=== PATIENT | male | born 1995 | race African-American/Black ===

== ENCOUNTER 2021-04-28 11:40 | Emergency (ER) | payer MEDICAID ==
[~2021-04-28] VITALS: Ht 167.6 cm; Wt 67.0 kg
[2021-04-28] MEDS ORDERED: KETOROLAC 30MG/ML VIAL IV STA (12:03)
[2021-04-28] MEDS ORDERED: SODIUM CHLORIDE 0.9% 1,000 ML IV ONE (12:15)
[2021-04-28 13:10] LABS: BASOPHILS % 0.4 % (0.0-2.0); EOSINOPHILS % 0.2 % (0.0-5.0); HEMATOCRIT. 50.5 % (42.0-52.0); HEMOGLOBIN. 16.8 g/dL (14.0-18.0); LYMPHOCYTES % 10.2 % (20.0-50.0); MEAN CORPUSCULAR VOLUME 84.1 fL (80.0-94.0); MEAN PLATELET VOLUME 8.6 fl (7.4-10.4); MONOCYTES % 5.7 % (2.0-8.0); NEUTROPHILS % 83.5 % (40.0-76.0); PLATELET 247 x1000/uL (130-400); RED BLOOD CELL COUNT 6.01 mill/uL (4.7-6.1); RED CELL DISTRIBUTION WIDTH 13.3 % (11.6-14.6)
[2021-04-28 13:18] LABS: CHLORIDE 102 mEq/L (98-107)
[2021-04-28 13:23] LABS: ETHANOL BLOOD < 10 mg/dL
[2021-04-28 15:00] LABS: CLARITY URINE CLEAR (CLEAR); COLOR URINE DARK YELLOW (YELLOW); KETONES URINE 3+ (NEGATIVE); LEUKOCYTE ESTERASE URINE TRACE (NEGATIVE); NITRITE URINE NEGATIVE (NEGATIVE); OCCULT BLOOD URINE NEGATIVE (NEGATIVE); PH URINE 8.5 (4.5-8.0); PROTEIN URINE 2+ (NEGATIVE); SPECIFIC GRAVITY URINE 1.028 (1.005-1.030)
[2021-04-28 15:14] LABS: *AMPHETAMINES SCREEN URINE NEGATIVE (NEGATIVE); *BARBITURATES SCREEN URINE NEGATIVE (NEGATIVE); *BENZODIAZEPINES SCREEN URINE NEGATIVE (NEGATIVE); *COCAINE SCREEN URINE NEGATIVE (NEGATIVE); CANNABINOID URINE SCREEN PRESUMTIVE POSITIVE (NEGATIVE); PHENCYCLIDINE URINE SCREEN NEGATIVE (NEGATIVE)
[2021-04-28] MEDS ORDERED: IBUP-2028 MT (15:14)
[2021-04-28 15:15] LABS: METHADONE URINE SCREEN NEGATIVE (NEGATIVE); OPIATES URINE SCREEN NEGATIVE (NEGATIVE)
[2021-04-28 16:52] VITALS: BP 126/72
== END 2021-04-28 16:54 | disposition home or self-care (01) ==
LOC: ER 11:45
DX: R10.31 Right lower quadrant pain (principal); K56.609 Unspecified intestinal obstruction, unspecified as to partial versus complete obstruction; J45.909 Unspecified asthma, uncomplicated; Z79.899 Other long term (current) drug therapy
CPT/HCPCS: 36415; 74176; 80053; 80305; 80307; 80320; 80329; 81003; 83690; 85025; 93005; 96361; 96374; 99285; J1885; J7030; Z7610; G0480

== ENCOUNTER 2023-10-06 19:57 | Emergency (ER) | payer MEDICAID ==
[~2023-10-06] VITALS: Ht 172.7 cm; Wt 68.0 kg
[~2023-10-06 19:57] MED LIST: IBUP-2028 MT
[2023-10-06 20:06] VITALS: O2SAT 99
[2023-10-06 20:40] VITALS: TEMP 98.5
[2023-10-06] MEDS: BUPRENORPHINE 8MG SL TABLET SL ONE ×2 (20:45→22:42)
[2023-10-06] MEDS ORDERED: BUPRENORPHINE 8MG SL TABLET SL ONE (22:00)
[2023-10-07] MEDS ORDERED: BUPR1TAB33 SL (00:55)
[2023-10-07] MEDS: BUPRENORPHINE 8MG SL TABLET SL NR (01:00)
[2023-10-07 01:33] VITALS: BP 134/76; PULSE 76; RESP 20
== END 2023-10-07 01:30 | disposition home or self-care (01) ==
LOC: ER 19:57
DX: F11.23 Opioid dependence with withdrawal (principal); J45.909 Unspecified asthma, uncomplicated
CPT/HCPCS: 99283; Z7610 ×2

== ENCOUNTER 2024-07-28 12:50 | Inpatient (IN) | payer MEDICAID ==
[~2024-07-28] VITALS: Ht 330.2 cm; Wt 70.3 kg
[~2024-07-28 12:50] MED LIST changes: +BUPR1TAB33 SL
[2024-07-28 12:52] VITALS: O2SAT 100
[2024-07-28] MEDS ORDERED: NALO4SPR BOTHNSTRLS (16:31)
[2024-07-28 16:38] LABS: BASOPHILS % 0.1 % (0.0-2.0); HEMATOCRIT. 42.5 % (42.0-52.0); HEMOGLOBIN. 14.2 g/dL (14.0-18.0); LYMPHOCYTES % 32.1 % (20.0-50.0); MEAN CORPUSCULAR HEMOGLOBIN 28.8 pg (28.0-32.0); MEAN CORPUSCULAR HGB CONC 33.4 g/dL (31.0-37.0); MEAN PLATELET VOLUME 7.9 fl (7.4-10.4); MONOCYTES % 7.5 % (2.0-8.0); NEUTROPHILS % 60.3 % (40.0-76.0); PLATELET 215 x1000/uL (130-400); RED BLOOD CELL COUNT 4.94 mill/uL (4.7-6.1); RED CELL DISTRIBUTION WIDTH 12.8 % (11.6-14.6); WHITE BLOOD COUNT 6.6 x1000/uL (4.5-11.0)
[2024-07-28 16:43] LABS: CHLORIDE 108 mEq/L (98-107); POTASSIUM 4.2 mEq/L (3.5-5.1); SODIUM 144 mEq/L (136-145)
[2024-07-28 16:44] LABS: CARBON DIOXIDE 26 mEq/L (21-32)
[2024-07-28 16:45] LABS: CALCIUM 10.5 mg/dL (8.7-10.4)
[2024-07-28 16:49] LABS: CREATININE 0.9 mg/dL (0.6-1.3); GLUCOSE 127 mg/dL (70-105); UREA NITROGEN BLOOD 20 mg/dL (9-23)
[2024-07-28 16:51] LABS: ACETAMINOPHEN < 2 ug/mL (10-30)
[2024-07-28 16:57] LABS: ETHANOL BLOOD < 10 mg/dL (<10)
[2024-07-28 18:06] LABS: *AMPHETAMINES SCREEN URINE NEGATIVE (NEGATIVE); *BENZODIAZEPINES SCREEN URINE PRESUMPTIVE POSITIVE (NEGATIVE)
[2024-07-28 18:07] LABS: *BARBITURATES SCREEN URINE NEGATIVE (NEGATIVE); *COCAINE SCREEN URINE NEGATIVE (NEGATIVE); CANNABINOID URINE SCREEN PRESUMPTIVE POSITIVE (NEGATIVE); ECSTASY MDMA SCREEN URINE NEGATIVE (NEGATIVE); METHADONE URINE SCREEN NEGATIVE (NEGATIVE); OPIATES URINE SCREEN NEGATIVE (NEGATIVE); PHENCYCLIDINE URINE SCREEN NEGATIVE (NEGATIVE)
[2024-07-29] VITALS (7 sets, daily range): BP systolic 96–124; BP diastolic 50–77; PULSE 56–62; RESP 17–18; TEMP 35.9–36.9; O2SAT 18–100
[2024-07-29] MEDS ORDERED: ACETAMINOPHEN 325MG TABLET PO PRN ×2 (01:30→02:00)
[2024-07-29] MEDS: ENOXAPARIN 40MG/0.4ML SYR SUBCUT SCH (08:29)
[2024-07-29] MEDS ORDERED: LORAZEPAM 2MG/ML INJ IV PRN (10:00)
[2024-07-29] MEDS ORDERED: CLONIDINE 0.1MG TABLET PO PRN (10:00)
[2024-07-29] MEDS ORDERED: ONDANSETRON HCL 4MG/2ML INJ IV PRN (10:00)
[2024-07-29 11:08] LABS: CARBON DIOXIDE 25 mEq/L (21-32); CHLORIDE 111 mEq/L (98-107)
[2024-07-29 11:09] LABS: CALCIUM 10.1 mg/dL (8.7-10.4); POTASSIUM 3.2 mEq/L (3.5-5.1); SODIUM 146 mEq/L (136-145)
[2024-07-29 11:11] LABS: HEMATOCRIT 39.3 % (42.0-52.0); HEMOGLOBIN 13.1 g/dL (14.0-18.0); MEAN CORPUSCULAR HEMOGLOBIN 28.6 pg (28.0-32.0); MEAN CORPUSCULAR HGB CONC 33.3 g/dL (31.0-37.0); MEAN CORPUSCULAR VOLUME 86.1 fL (80.0-94.0); PLATELET 188 x1000/uL (130-400); RED BLOOD CELL COUNT 4.57 mill/uL (4.7-6.1); RED CELL DISTRIBUTION WIDTH 12.6 % (11.6-14.6); WHITE BLOOD COUNT 6.4 x1000/uL (4.5-11.0)
[2024-07-29 11:13] LABS: CREATININE 0.9 mg/dL (0.6-1.3)
[2024-07-29 11:14] LABS: GLUCOSE 139 mg/dL (70-105); UREA NITROGEN BLOOD 25 mg/dL (9-23)
[2024-07-29 11:15] LABS: ALANINE AMINOTRANSFERASE 12 IU/L (10-49); ALBUMIN 4.4 g/dL (3.2-4.8); ASPARTATE AMINOTRANSFERASE 15 IU/L (<34)
[2024-07-29 11:16] LABS: BILIRUBIN TOTAL 0.7 mg/dL (0.1-1.0); PROTEIN TOTAL 7.4 g/dL (6.0-8.3)
[2024-07-29] MEDS: POTASSIUM CHLORIDE 20MEQ TABLET SR PO NR (23:31)
[2024-07-30] VITALS: BP 101/43; PULSE 56; RESP 18; TEMP 36.4; O2SAT 98
[2024-07-30] MEDS: KCL 20MEQ/100ML PREMIX 100 ML IV SCH (01:18)
[2024-07-30 04:00] VITALS: BP 106/49; PULSE 51; RESP 18; TEMP 36.7; O2SAT 99
[2024-07-30 08:00] VITALS: BP 127/77; PULSE 54; RESP 20; TEMP 36.3; O2SAT 100
[2024-07-30 12:00] VITALS: BP 122/69; PULSE 60; RESP 20; TEMP 36.6; O2SAT 100
[2024-07-30 16:00] VITALS: BP 125/58; PULSE 64; RESP 20; TEMP 36.3; O2SAT 97
[2024-07-30 17:23] LABS: HEMATOCRIT. 41.2 % (42.0-52.0); HEMOGLOBIN. 13.6 g/dL (14.0-18.0); MEAN CORPUSCULAR HEMOGLOBIN 28.8 pg (28.0-32.0); MEAN CORPUSCULAR VOLUME 87.2 fL (80.0-94.0); MEAN PLATELET VOLUME 8.2 fl (7.4-10.4); PLATELET 185 x1000/uL (130-400); RED BLOOD CELL COUNT 4.72 mill/uL (4.7-6.1); RED CELL DISTRIBUTION WIDTH 12.9 % (11.6-14.6); WHITE BLOOD COUNT 6.2 x1000/uL (4.5-11.0)
[2024-07-30 17:28] LABS: DIFFERENTIAL COMMENT 1
[2024-07-30 17:32] LABS: CHLORIDE 114 mEq/L (98-107); POTASSIUM 3.8 mEq/L (3.5-5.1); SODIUM 149 mEq/L (136-145)
[2024-07-30 17:33] LABS: CARBON DIOXIDE 23 mEq/L (21-32)
[2024-07-30 17:34] LABS: CALCIUM 10.6 mg/dL (8.7-10.4)
[2024-07-30 17:34] LABS: CLARITY URINE CLOUDY (CLEAR); COLOR URINE DARK YELLOW (YELLOW); GLUCOSE URINE NEGATIVE (NEGATIVE); KETONES URINE 3+ (NEGATIVE); LEUKOCYTE ESTERASE URINE NEGATIVE (NEGATIVE); NITRITE URINE NEGATIVE (NEGATIVE); OCCULT BLOOD URINE NEGATIVE (NEGATIVE); PROTEIN URINE 1+ (NEGATIVE)
[2024-07-30 17:38] LABS: CREATININE 0.9 mg/dL (0.6-1.3); GLUCOSE 105 mg/dL (70-105)
[2024-07-30 17:39] LABS: UREA NITROGEN BLOOD 29 mg/dL (9-23)
[2024-07-30 17:40] LABS: ALANINE AMINOTRANSFERASE 12 IU/L (10-49); ALBUMIN 4.8 g/dL (3.2-4.8); ASPARTATE AMINOTRANSFERASE 16 IU/L (<34)
[2024-07-30 17:41] LABS: BILIRUBIN TOTAL 0.8 mg/dL (0.1-1.0); PROTEIN TOTAL 7.9 g/dL (6.0-8.3)
[2024-07-30 17:46] LABS: PLATELET ESTIMATE NORMAL
[2024-07-30 17:51] LABS: BACTERIA URINE NONE SEEN; RBC URINE NONE SEEN /hpf (0-2); SQUAMOUS EPITHELIAL CELL URINE FEW /lpf (RARE/1+); WBC URINE 0-2 /hpf (0-2)
[2024-07-30] MEDS: DEXT 5%/0.45% NACL 1000ML 1,000 ML IV SCH (19:53)
[2024-07-30 20:00] VITALS: BP 100/50; PULSE 55; RESP 18; TEMP 36.6; O2SAT 95
[2024-07-31] VITALS: BP 104/50; PULSE 52; RESP 18; TEMP 36.7; O2SAT 99
[2024-07-31 04:00] VITALS: BP 127/58; PULSE 65; RESP 18; TEMP 36.9; O2SAT 98
[2024-07-31 08:00] VITALS: BP 103/61; PULSE 51; RESP 18; TEMP 36.2; O2SAT 96
[2024-07-31 12:00] VITALS: BP 101/63; PULSE 71; RESP 18; TEMP 36.4; O2SAT 99
[2024-07-31 16:00] VITALS: BP 105/59; PULSE 71; RESP 18; TEMP 37.8; O2SAT 70
[2024-07-31 20:00] VITALS: BP 117/67; PULSE 60; RESP 20; TEMP 37; O2SAT 100
[2024-08-01] VITALS: BP 120/60; PULSE 70; RESP 20; TEMP 36.8; O2SAT 100
[2024-08-01 04:00] VITALS: BP 103/56; PULSE 56; RESP 18; TEMP 36.6; O2SAT 98
[2024-08-01 08:00] VITALS: BP 118/52; PULSE 64; RESP 18; TEMP 36.8; O2SAT 95
[2024-08-01 12:00] VITALS: BP 125/49; PULSE 90; RESP 18; TEMP 36.9; O2SAT 97
[2024-08-01 16:00] VITALS: BP 124/49; PULSE 95; RESP 18; TEMP 36.2; O2SAT 99
[2024-08-01 20:00] VITALS: BP 129/76; PULSE 63; RESP 17; TEMP 36.5; O2SAT 99
[2024-08-02] VITALS: BP_SYST 116; BP_SYST 123; BP_DIAS 44; BP_DIAS 56; PULSE 62; PULSE 77; RESP 16; RESP 19; TEMP 36.7; TEMP 36.9; O2SAT 97; O2SAT 98
[2024-08-02 04:00] VITALS: BP 123/56; PULSE 77; RESP 19; TEMP 36.7; O2SAT 97
[2024-08-02 08:00] VITALS: BP 103/48; PULSE 72; RESP 18; TEMP 36.6; O2SAT 100
[2024-08-02 12:00] VITALS: BP 115/62; PULSE 66; RESP 17; TEMP 36.6; O2SAT 98
[2024-08-02 16:00] VITALS: BP 97/70; PULSE 66; PULSE 75; PULSE 78; RESP 17; RESP 18; TEMP 36.3; O2SAT 100
[2024-08-02] MEDS: HALOPERIDOL LACTATE 5MG/ML VIAL IM NR (16:30)
[2024-08-02 20:00] VITALS: BP 135/78; PULSE 100; RESP 18; TEMP 36.2; O2SAT 97
[2024-08-02] MEDS: OLANZAPINE 5MG TABLET PO SCH (21:33)
[2024-08-03] VITALS: BP 128/75; PULSE 77; RESP 18; TEMP 36.7; O2SAT 98
[2024-08-03 08:00] VITALS: BP 117/56; PULSE 62; RESP 17; TEMP 36; O2SAT 100
[2024-08-03 12:00] VITALS: BP 121/58; PULSE 75; RESP 18; TEMP 36.7; O2SAT 100
[2024-08-03 16:00] VITALS: BP 105/65; PULSE 79; RESP 17; TEMP 36.4; O2SAT 100
[2024-08-04] VITALS: BP 104/72; PULSE 62; RESP 16; TEMP 36.3; O2SAT 100
[2024-08-04 06:00] VITALS: BP 118/61; PULSE 71; RESP 16; TEMP 36.4; O2SAT 97
[2024-08-04 08:00] VITALS: BP 115/64; PULSE 64; RESP 19; TEMP 36.2; O2SAT 98
[2024-08-04 12:00] VITALS: BP 110/53; PULSE 67; RESP 18; TEMP 36.2; O2SAT 98
== END 2024-08-04 15:15 | disposition left against medical advice (07) | DRG 52 ==
LOC: ER 13:00 → 7EST 19:02 → EDBEDREQ 19:12 → EDBEDREQTM 19:12
PROVIDERS: ADMIT Internal Medicine; ATTEND Internal Medicine
PROC: GZ56ZZZ Individual Psychotherapy, Supportive (ICD-10-PCS; principal; 2024-08-02)
DX: G93.41 Metabolic encephalopathy (principal); F29 Unspecified psychosis not due to a substance or known physiological condition; E87.6 Hypokalemia; F12.10 Cannabis abuse, uncomplicated; F41.9 Anxiety disorder, unspecified; Z53.21 Procedure and treatment not carried out due to patient leaving prior to being seen by health care provider; F13.10 Sedative, hypnotic or anxiolytic abuse, uncomplicated; J45.909 Unspecified asthma, uncomplicated; Z87.891 Personal history of nicotine dependence
CPT/HCPCS: 36415; 71045; 80048; 80053; 80305; 80307; 80320; 80329; 81003; 83735; 84443; 85025; 85027; 97162; 97166; 97535; 99285; A4606; J1630; J1650; J3480; G0480

== ENCOUNTER 2024-08-24 14:31 | Emergency (ER) | payer MEDICAID ==
[~2024-08-24] VITALS: Ht 177.8 cm; Wt 70.0 kg
[~2024-08-24 14:31] MED LIST changes: +NALO4SPR BOTHNSTRLS
[2024-08-24] MEDS: OLANZAPINE 10 MG/VIAL IM STA (14:32)
[2024-08-24 14:34] VITALS: O2SAT 100
[2024-08-24 16:05] LABS: BASOPHILS % 0.1 % (0.0-2.0); EOSINOPHILS % 0.1 % (0.0-5.0); HEMATOCRIT. 43.2 % (42.0-52.0); HEMOGLOBIN. 13.9 g/dL (14.0-18.0); LYMPHOCYTES % 16.2 % (20.0-50.0); MEAN CORPUSCULAR HGB CONC 32.3 g/dL (31.0-37.0); MEAN CORPUSCULAR VOLUME 89.7 fL (80.0-94.0); MEAN PLATELET VOLUME 7.7 fl (7.4-10.4); MONOCYTES % 6.7 % (2.0-8.0); NEUTROPHILS % 76.9 % (40.0-76.0); PLATELET 259 x1000/uL (130-400); RED BLOOD CELL COUNT 4.81 mill/uL (4.7-6.1); RED CELL DISTRIBUTION WIDTH 19.3 % (11.6-14.6)
[2024-08-24 16:15] LABS: CHLORIDE 103 mEq/L (98-107); POTASSIUM 4.7 mEq/L (3.5-5.1); SODIUM 140 mEq/L (136-145)
[2024-08-24 16:16] LABS: CARBON DIOXIDE 29 mEq/L (21-32)
[2024-08-24 16:17] LABS: CALCIUM 10.6 mg/dL (8.7-10.4)
[2024-08-24 16:21] LABS: CREATININE 0.8 mg/dL (0.6-1.3); GLUCOSE 110 mg/dL (70-105); UREA NITROGEN BLOOD 19 mg/dL (9-23)
[2024-08-24 16:23] LABS: ACETAMINOPHEN < 2 ug/mL (10-30)
[2024-08-24 16:25] LABS: ETHANOL BLOOD < 10 mg/dL (<10)
[2024-08-24] MEDS: HALOPERIDOL 5MG TABLET PO NR (23:54)
[2024-08-24] MEDS: HALOPERIDOL 5MG TABLET PO ONE (23:54)
[2024-08-25] MEDS: OLANZAPINE 10 MG/VIAL IM ONE (03:55)
[2024-08-25 22:25] LABS: CLARITY URINE CLEAR (CLEAR); COLOR URINE DARK YELLOW (YELLOW); GLUCOSE URINE NEGATIVE (NEGATIVE); KETONES URINE TRACE (NEGATIVE); LEUKOCYTE ESTERASE URINE TRACE (NEGATIVE); NITRITE URINE NEGATIVE (NEGATIVE); OCCULT BLOOD URINE NEGATIVE (NEGATIVE); PH URINE 6.5 (4.5-8.0); PROTEIN URINE NEGATIVE (NEGATIVE)
[2024-08-25 22:37] LABS: *AMPHETAMINES SCREEN URINE NEGATIVE (NEGATIVE)
[2024-08-25 22:38] LABS: *BARBITURATES SCREEN URINE NEGATIVE (NEGATIVE); *BENZODIAZEPINES SCREEN URINE NEGATIVE (NEGATIVE); *COCAINE SCREEN URINE NEGATIVE (NEGATIVE); CANNABINOID URINE SCREEN PRESUMPTIVE POSITIVE (NEGATIVE); ECSTASY MDMA SCREEN URINE NEGATIVE (NEGATIVE); METHADONE URINE SCREEN NEGATIVE (NEGATIVE); OPIATES URINE SCREEN NEGATIVE (NEGATIVE); PHENCYCLIDINE URINE SCREEN NEGATIVE (NEGATIVE)
[2024-08-25 22:56] LABS: BACTERIA URINE 1+; RBC URINE NONE SEEN /hpf (0-2); SQUAMOUS EPITHELIAL CELL URINE FEW /lpf (RARE/1+); WBC URINE 0-2 /hpf (0-2)
[2024-08-26] MEDS: LORAZEPAM 2MG/ML INJ IM ONE (01:31)
[2024-08-26] MEDS: OLANZAPINE 10 MG/VIAL IM ONE (01:31)
[2024-08-27] MEDS: SODIUM CHLORIDE 0.9% 1,000 ML IV ONE ×2 (00:55→06:15)
[2024-08-27] MEDS: LORAZEPAM 2MG/ML INJ IV ONE (02:33)
[2024-08-27] MEDS: ACETAMINOPHEN 325MG TABLET PO NR (04:45)
[2024-08-27] MEDS: SODIUM CHLORIDE 0.9% 500 ML IV ONE (05:16)
[2024-08-27 06:00] VITALS: TEMP 37.6
[2024-08-27 10:21] VITALS: BP 103/79; PULSE 113; RESP 13
== END 2024-08-27 10:30 | disposition home or self-care (01) ==
LOC: ER 14:31
DX: F29 Unspecified psychosis not due to a substance or known physiological condition (principal); J45.909 Unspecified asthma, uncomplicated; F12.90 Cannabis use, unspecified, uncomplicated; F15.90 Other stimulant use, unspecified, uncomplicated; Z79.899 Other long term (current) drug therapy; Z20.822 Contact with and (suspected) exposure to COVID-19
CPT/HCPCS: 80305; 80048; 81003; 80307; 80329; 80320; 85025; 36415; 93005; 99285; 87426; 96372 ×2; 96374; J3490 ×3; J2060 ×2; J7030; Z7610; G0480